=== PATIENT | female | born 1945 | race Caucasian/White ===

== ENCOUNTER 2018-03-11 10:47 | Outpatient (CLI) | payer MEDICARE ==
--- NOTE | 2018-03-11 12:07 | MMO ---
SCREENING MAMMOGRAPHY: 03/11/2018 COMPARISON: 02/21/2017 TECHNIQUE: Bilateral CC and MLO views. FINDINGS: Interpretation is made with the assistance of CAD. The breast parenchyma is comprised of scattered areas of fibroglandular density. Benign appearing ca lcifications are seen. No suspicious masses, areas of architectural distortion, or suspicious calcif ications apparent. IMPRESSION: BI-RADS Category 2-Benign findings. Annual screening mammography recommended. POS: [facility]
== END 2018-03-11 10:48 | disposition home or self-care (01) ==
LOC: SCSMAMMO 10:47
PROVIDERS: ATTEND Family Medicine
DX: Z12.31 Encounter for screening mammogram for malignant neoplasm of breast (principal)
CPT/HCPCS: 77067